=== PATIENT | male | born 1995 | race Caucasian/White ===

== ENCOUNTER → 2019-04-18 15:03 | Outpatient (BNVA) | payer MEDICAID, SELFPAY | PROVIDERS: Family Provider Nurse Practitioner Family; PCP Nurse Practitioner Family; Visit Provider Family Medicine | DX: E03.9 Hypothyroidism, unspecified (principal); E55.9 Vitamin D deficiency, unspecified; R53.83 Other fatigue | CPT/HCPCS: 80061; 82652; 83036; 84439; 84443; 84481 ==

== ENCOUNTER → 2019-10-17 09:17 | Outpatient (BNVA) | payer MEDICAID, SELFPAY | PROVIDERS: PCP Nurse Practitioner Family; Visit Provider Nurse Practitioner Family | DX: M25.562 Pain in left knee (principal) | CPT/HCPCS: 73562 ==

== ENCOUNTER → 2020-01-08 18:00 | Outpatient (BNVA) | payer MEDICAID, SELFPAY | PROVIDERS: PCP Nurse Practitioner Family; Visit Provider Family Medicine | DX: E03.9 Hypothyroidism, unspecified (principal); Z23 Encounter for immunization; J45.20 Mild intermittent asthma, uncomplicated; J30.2 Other seasonal allergic rhinitis; K21.9 Gastro-esophageal reflux disease without esophagitis; F90.2 Attention-deficit hyperactivity disorder, combined type | CPT/HCPCS: 84443 ==

== ENCOUNTER 2020-02-28 12:30 | Emergency (ER) | payer MEDICAID, SELFPAY ==
[2020-02-28 12:36] VITALS: BP 126/82; PULSE 83; RESP 14; TEMP 36.6; O2SAT 97; BMI 29.5
--- NOTE | 2020-02-28 12:40 | W.ED.ANXIETY ---
HPI - Anxiety General: Chief Complaint: Anxiety Stated Complaint: ANXIETY, DIFF BREATHING Time Seen by Provider: 02/28/20 12:40 History of Present Illness: HPI narrative: Patient is a 24-year-old male who comes to the ED after having an anxiety attack. Patient has a past medical history of asthma, hypothyroid, iron intellectual disability and ADHD. Patient says he is at work today and he found out that he was losing his job. He then started getting short of breath, diaphoretic, shaking and chest discomfort. Patient symptoms resolved before he got into the ambulance. Here in the ED he feels completely normal and has no shortness of breath or chest pain. Patient's mother was present during history and physical exam. Associated symptoms: Deny chest pain, chills, fever(s), headache(s), nausea, palpitations or vomiting Review of Systems Const: Denies: fever(s), chills or fatigue Eyes: Denies: change in vision or eye discomfort ENMT: Denies: throat pain, odynophagia, nasal discharge or nasal congestion Card: Denies: chest pain, palpitations, edema, swelling of feet/ankles, dyspnea on exertion or orthopnea Resp: Denies: dyspnea, productive cough or non-productive cough GI: Denies: abdominal pain, nausea, vomiting, diarrhea, constipation or hematochezia : Denies: flank pain, difficulty urinating, dysuria or hematuria Musc: Denies: neck pain, back pain or extremity swelling Skin/Breast: Denies: rash or new lesions Neuro: Denies: headache(s), numbness in extremities or weakness in extremities Psych: Reports: anxiety (acute anxiety attack) [facility] ED PFSH: Medical History Asthma, mild intermittent Attention deficit hyperactivity disorder (ADHD), combined type, mild GERD (gastroesophageal reflux disease) Hypothyroid Moderate intellectual disabilities Seasonal allergies Surgical History No pertinent past surgical history Social History Smoking and tobacco status: never smoked Second hand smoke exposure: No Alcohol intake: current Alcohol intake frequency: holidays/special occasions only Desire information about alcohol rehabilitation?: No Desire information about substance/drug rehabilitation?: No History of recent travel: No Physical Exam Const: COMMON NORMALS: no acute distress, patient oriented x3, healthy appearing and alert GENERAL APPEARANCE: cooperative and comfortable HENMT: COMMON NORMALS: normocephalic HEAD & SCALP: normocephalic MOUTH: Normal oral and palatal mucosa present THROAT: posterior oropharynx normal and uvula midline Eye: COMMON NORMALS: Equal, round and reactive pupils present PUPIL: Yes Equal, round and reactive pupils present Neck/C-Spine: COMMON NORMALS: supple GENERAL: Yes normal visual inspection Resp: COMMON NORMALS: normal respiratory effort, No retractions, No use of accessory muscles and clear to auscultation bilaterally EFFORT & INSPECTION: Yes able to speak in complete sentences, No tachypneic, No respiratory distress and No labored AUSCULTATION: clear to auscultation bilaterally Cardio: COMMON NORMALS: regular rate, regular rhythm, S1 normal heart sound present, S2 normal heart sound present, No gallops present (Cardio), No clicks present (Cardio), No murmurs present (Cardio) and Peripheral pulses 2+ throughout RATE: regular rate RHYTHM: regular rhythm HEART SOUNDS: S1 normal heart sound present and S2 normal heart sound present PERIPHERAL PULSES: Peripheral pulses 2+ throughout GI: COMMON NORMALS: Normal to inspection, nondistended, normoactive bowel sounds present, Soft to palpation, non-tender and no masses PALPATION: Yes Soft to palpation : COMMON NORMALS: Yes no CVA tenderness BLADDER/KIDNEY EXAM: Yes no CVA tenderness Back/Pelvis: COMMON NORMALS: no CVA tenderness Extremity: COMMON NORMALS: normal to inspection Neuro: COMMON NORMALS: patient oriented x3 and moves all extremities SENSORIUM/ORIENTATION: Yes alert Skin: GENERAL SKIN EXAM: dry skin Course Vital Signs: Vital signs: Vital Signs Temperature 97.9 F 02/28/20 12:36 Pulse Rate 83 02/28/20 12:36 Respiratory Rate 14 02/28/20 12:36 Blood Pressure 126/82 02/28/20 12:36 Pulse Oximetry 97 02/28/20 12:36 MDM - Anxiety MDM Narrative: Medical decision making narrative: Patient is a 24-year-old male who comes to the ED with acute anxiety attack. All symptoms had resolved on the time he was here in the ED. Physical exam was unremarkable. Lungs were clear to auscultation bilaterally. Patient was discharged with prescription for Vistaril for any acute anxiety attacks. Return to ED precautions given. Follow-up with PCP in 7 to 10 days. Patient and Patient's mother understood and agreed with plan. Discharge Plan Discharge Patient Disposition: Home Clinical Impression: Acute anxiety Condition: Stable Prescriptions: New Vistaril 25 mg capsule 25 mg PO Q8H PRN (Reason: anxiety) Qty: 20 RF: 0 No Action albuterol sulfate [ProAir HFA] 90 mcg/actuation HFA aerosol inhaler 2 puff INHALATION Q6H PRN (Reason: shortness of breath or wheezing) 30 Days Qty: 18 RF: 5 levothyroxine 25 mcg capsule 25 mcg PO DAILY 30 Days Qty: 30 RF: 5 loratadine 10 mg capsule 10 mg PO DAILY 30 Days Qty: 30 RF: 5 omeprazole 40 mg capsule,delayed release(DR/EC) 40 mg PO DAILY 30 Days Qty: 30 RF: 5 melatonin 3 mg capsule 3 mg PO DAILY RF: 0 benztropine 1 mg tablet 1 mg PO BID Qty: 60 RF: 3 guanfacine 2 mg tablet 2 mg PO .twice daily Qty: 60 RF: 3 haloperidol 5 mg tablet 5 mg PO BID Qty: 60 RF: 3 lamotrigine [Lamictal] 150 mg tablet 150 mg PO BID Qty: 60 RF: 3 mirtazapine [Remeron] 15 mg tablet 7.5 mg PO .bedtime Qty: 30 RF: 2 Discharge Orders: Discharge ED (Routine); Ordered 02/28/20 Ordered By: Harjinder Chapa Discharge Diet: Regular Discharge Activity: Resume usual activity Patient Instructions: Anxiety (ED) Activity Restrictions/Additional Instructions: Follow-up with medical provider as directed in 7 to 10 days for reevaluation. Take medications as prescribed. Return to the ER or your medical provider if condition worsens. Please read and understand discharge instructions. If any questions, please ask. Coding Level of Care Code ED Java [employer] Application Developer for Niko Chatterjee Exam Comprehensive
== END 2020-02-28 13:39 | disposition home or self-care (01) ==
PROVIDERS: Emergency Provider Physician Assistant
DX: F41.9 Anxiety disorder, unspecified (principal)
CPT/HCPCS: 12345; 99281; 99282

== ENCOUNTER → 2020-04-17 15:07 | Outpatient (BNVA) | payer MEDICAID, SELFPAY | PROVIDERS: Visit Provider Emergency Medicine | DX: S46.911A Strain of unspecified muscle, fascia and tendon at shoulder and upper arm level, right arm, initial encounter (principal); X58.XXXA Exposure to other specified factors, initial encounter | CPT/HCPCS: 73030 ==

== ENCOUNTER → 2020-04-29 15:40 | Outpatient (BNVA) | payer MEDICAID, SELFPAY | PROVIDERS: Visit Provider Registered Nurse | DX: Z03.89 Encounter for observation for other suspected diseases and conditions ruled out (principal); Z79.899 Other long term (current) drug therapy | CPT/HCPCS: 36415; 80053; 80061; 82306; 82607; 82746; 83036; 83721; 84443 ==

== ENCOUNTER 2020-05-21 14:44 | Outpatient (CLI) | payer MEDICAID, SELFPAY ==
--- NOTE | 2020-05-21 15:14 | MR_ITS ---
WS: [id number] MRI RIGHT SHOULDER NONCONTRAST TECHNIQUE: Sagittal T2, coronal T1, T2 and proton density imaging. Axial gradient PDE imaging. CLINICAL INFORMATION: RECURRENT RIGHT SHOULDER INJURIES COMPARISON: None. FINDINGS: Minimal degenerative changes AC joint with trace edema. Subacromial space is preserved. Normal distal supraspinatus. Normal infraspinatus. Normal teres minor. Subscapularis is normal in appearance. No a cute rotator cuff tears. Normal biceps tendon in the bicipital groove. Normal biceps labral anchor. Glenoid labrum appears kaylan ssly normal. Normal bone marrow signal in the glenoid and humerus. No other significant findings. MR/MR shoulder RT wo con* [id number] IMPRESSION: 1. Minimal degenerative changes AC joint with trace edema. Mild downsloping ac romion. 2. Rotator cuff is normal in appearance. No acute rotator cuff tears. 3. Normal biceps tendon in the bicipital groove. Normal biceps labral anchor. 4. Glenoid labrum appears grossly normal. 5. No other significant findings.
== END 2020-05-21 14:45 | disposition home or self-care (01) ==
PROVIDERS: Visit Provider Emergency Medicine
DX: S49.91XA Unspecified injury of right shoulder and upper arm, initial encounter; X58.XXXA Exposure to other specified factors, initial encounter
CPT/HCPCS: 73221

== ENCOUNTER → 2020-07-20 17:27 | Outpatient (BNVA) | payer MEDICAID, SELFPAY | PROVIDERS: Visit Provider Nurse Practitioner Family | DX: M25.512 Pain in left shoulder (principal); S43.50XA Sprain of unspecified acromioclavicular joint, initial encounter; X58.XXXA Exposure to other specified factors, initial encounter | CPT/HCPCS: 73030 ==

== ENCOUNTER → 2020-10-22 15:40 | Outpatient (BNVA) | payer MEDICAID, SELFPAY | PROVIDERS: Visit Provider Family Medicine | DX: E03.9 Hypothyroidism, unspecified (principal); K21.9 Gastro-esophageal reflux disease without esophagitis; J30.2 Other seasonal allergic rhinitis; E55.9 Vitamin D deficiency, unspecified; R79.89 Other specified abnormal findings of blood chemistry; J45.20 Mild intermittent asthma, uncomplicated; F90.2 Attention-deficit hyperactivity disorder, combined type; E78.1 Pure hyperglyceridemia | CPT/HCPCS: 84443 ==

== ENCOUNTER → 2021-06-16 16:39 | Outpatient (BNVA) | payer MEDICAID, SELFPAY | PROVIDERS: Visit Provider Emergency Medicine | DX: S50.12XA Contusion of left forearm, initial encounter (principal); M25.532 Pain in left wrist; X58.XXXA Exposure to other specified factors, initial encounter | CPT/HCPCS: 73110 ==

== ENCOUNTER → 2021-10-28 16:41 | Outpatient (BNVA) | payer MEDICAID, SELFPAY | PROVIDERS: Visit Provider Nurse Practitioner Family | DX: S99.911A Unspecified injury of right ankle, initial encounter (principal); X50.1XXA Overexertion from prolonged static or awkward postures, initial encounter; Y93.67 Activity, basketball | CPT/HCPCS: 73600 ==

== ENCOUNTER → 2021-11-13 08:30 | Outpatient (BNVA) | payer MEDICAID, SELFPAY | PROVIDERS: PCP Family Medicine; Visit Provider Family Medicine | DX: K21.9 Gastro-esophageal reflux disease without esophagitis (principal); J30.2 Other seasonal allergic rhinitis; E03.9 Hypothyroidism, unspecified; E55.9 Vitamin D deficiency, unspecified; R79.89 Other specified abnormal findings of blood chemistry; J45.20 Mild intermittent asthma, uncomplicated; E78.1 Pure hyperglyceridemia; Z13.1 Encounter for screening for diabetes mellitus; F90.2 Attention-deficit hyperactivity disorder, combined type; F51.05 Insomnia due to other mental disorder; F99 Mental disorder, not otherwise specified | CPT/HCPCS: 80053; 80061; 82652; 84443; 85025 ==

== ENCOUNTER → 2022-02-04 08:39 | Outpatient (BNVA) | payer MEDICAID, SELFPAY | PROVIDERS: PCP Family Medicine; Visit Provider Family Medicine | DX: E03.9 Hypothyroidism, unspecified (principal) | CPT/HCPCS: 84439; 84443; 84481 ==

== ENCOUNTER → 2022-05-26 16:32 | Outpatient (BNVA) | payer MEDICAID, SELFPAY | PROVIDERS: PCP Family Medicine; Visit Provider Nurse Practitioner Family | DX: J02.9 Acute pharyngitis, unspecified (principal) | CPT/HCPCS: 87071; 87880 ==

== ENCOUNTER → 2022-11-12 08:44 | Outpatient (BNVA) | payer MEDICAID, SELFPAY | PROVIDERS: PCP Family Medicine; Visit Provider Family Medicine | DX: K21.9 Gastro-esophageal reflux disease without esophagitis (principal); J30.2 Other seasonal allergic rhinitis; E03.9 Hypothyroidism, unspecified; J45.20 Mild intermittent asthma, uncomplicated; Z51.81 Encounter for therapeutic drug level monitoring; R53.83 Other fatigue; E78.1 Pure hyperglyceridemia | CPT/HCPCS: 80053; 80061; 82652; 84439; 84443; 84481; 85025 ==

== ENCOUNTER → 2023-01-01 12:36 | Outpatient (BNVA) | payer MEDICARE, MEDICAID, SELFPAY | PROVIDERS: PCP Family Medicine; Visit Provider Emergency Medicine | DX: M25.571 Pain in right ankle and joints of right foot (principal); M79.671 Pain in right foot | CPT/HCPCS: 73610; 73630 ==

== ENCOUNTER → 2023-09-09 16:04 | Outpatient (BNVA) | payer MEDICARE, MEDICAID, SELFPAY | PROVIDERS: PCP Family Medicine; Visit Provider Emergency Medicine | DX: J02.9 Acute pharyngitis, unspecified (principal) | CPT/HCPCS: 87071; 87880 ==

== ENCOUNTER → 2023-11-18 08:20 | Outpatient (BNVA) | payer MEDICAID, SELFPAY | PROVIDERS: PCP Family Medicine; Visit Provider Family Medicine | DX: Z13.1 Encounter for screening for diabetes mellitus (principal); E55.9 Vitamin D deficiency, unspecified; E03.9 Hypothyroidism, unspecified; E78.1 Pure hyperglyceridemia; Z51.81 Encounter for therapeutic drug level monitoring | CPT/HCPCS: 80053; 80061; 82652; 84439; 84443; 84481; 85025 ==

== ENCOUNTER → 2024-11-03 08:29 | Outpatient (BNVA) | payer MEDICAID, SELFPAY | PROVIDERS: PCP Family Medicine; Visit Provider Family Medicine | DX: Z51.81 Encounter for therapeutic drug level monitoring (principal); E03.9 Hypothyroidism, unspecified; E78.1 Pure hyperglyceridemia; E55.9 Vitamin D deficiency, unspecified | CPT/HCPCS: 80053; 80061; 82652; 84439; 84443; 84481; 85025 ==

== ENCOUNTER → 2025-01-30 10:47 | Outpatient (BNVA) | payer MEDICARE, MEDICAID, SELFPAY | PROVIDERS: PCP Family Medicine | DX: F84.0 Autistic disorder (principal) | CPT/HCPCS: 80175; 82607 ==